=== PATIENT | male | born 2000 | race Caucasian/White ===

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

== ENCOUNTER 2018-05-21 22:38 | Emergency (ER) | payer OTHER | END 2018-05-22 00:52 | disposition left against medical advice (07) | LOC: M ED 05-22 00:52 | DX: S09.90XA Unspecified injury of head, initial encounter (principal); Z53.21 Procedure and treatment not carried out due to patient leaving prior to being seen by health care provider ==

== ENCOUNTER 2018-06-01 18:59 | Emergency (ER) | payer OTHER | END 2018-06-01 20:30 | disposition home or self-care (01) | LOC: M ED 18:59 | DX: G47.00 Insomnia, unspecified (principal); F17.210 Nicotine dependence, cigarettes, uncomplicated | CPT/HCPCS: 99284 ==